=== PATIENT | male | born 1955 | race Caucasian/White ===

== ENCOUNTER → 2024-09-10 12:53 | Outpatient (REF) | payer MEDICARE, SELFPAY ==
--- NOTE | ~2024-09-10 | US_ITS ---
EXAMINATION: BILATERAL CAROTID ULTRASOUND WITH DOPPLER HISTORY: syncope COMPARISON: There are no prior studies for comparison. TECHNIQUE: Real time and Color and Spectral doppler ultrasonography of the carotid and vertebral arteries was performed in multiple planes. FINDINGS: There is mild plaque at both carotid bifurcations. VERTEBRAL FLOW DIRECTION: Antegrade bilaterally. PEAK SYSTOLIC VELOCITIES (in cm/sec): RIGHT: CCA: Prox: 107 Dist: 68.8 ICA: Prox: 66.4 Mid: 75.7 Dist: 92.7 ICA/CCA Ratio: 0.87 ECA: 146 Peak ICA EDV: 22.0 LEFT: CCA: Prox: 112 Dist: 67.5 ICA: Prox: 88.4 Mid: 81.4 Dist: 73.9 ICA/CCA Ratio: 0.80 ECA: 189 Peak ICA EDV: 27.7 US/US carotid duplex BI IMPRESSION: Findings consistent with 0-49% stenosis of the bilateral internal carotid arteries. Electronically signed by: Raffi Castellon MD 09/11/2024 08:08 AM EDT
--- NOTE | 2024-09-10 13:01 | CA_ITS ---
Transthoracic Echocardiogram Patient (Last, First, Middle): Price Lee, Gender: Male Date of : 1955 Age: 69 Procedure Date: 09/10/2024 Procedure Type: Transthoracic Echocardiogram Location: ER Height: 172.72 cm Weight: 88.45 kg BSA: 2.02 m2 Heart Rate: 101 bpm BP: 130 / 80 mmHg Superintendent Quarry: SB Referring MD: Albert Murray MD [employer] Supervisor: Storm Brunner MD Symptoms: R55 R60.9 SYNCOPE COLLAPSE EDEMA Study Quality: Fair ECG Rhythm: Tachycardia Conclusions: - 1. Normal LV ejection fraction 55-60% with impaired relaxation filling pattern 2. Moderate aortic stenosis Findings Procedure Information The quality of the study was technically difficult. The study quality is limited by patients body habitus and lung artifact. Left Ventricle Normal left ventricular size, thickness, and systolic function. The visually estimated ejection fraction is between 55-60%. Spectral Doppler is indicative of an impaired relaxation filling pattern. E/E prime ratio is >15, consistent with elevated filling pressures. Right Ventricle The right ventricle was not well visualized. Atria The left atrium is mildly dilated. 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 Interatrial shunt cannot be excluded. The right atrium was not well visualized. Aortic Valve The aortic valve was not well visualized. There is moderate calcification of the aortic valve. There is moderate aortic valve stenosis. The peak aortic gradient is 50 mmHg.The mean gradient is 31 mmHg. The aortic valve area is 1.28 cm2. There is no aortic valve regurgitation. Mitral Valve The mitral valve was not well visualized. There is trace mitral valve regurgitation. There is no mitral valve stenosis. Pulmonic Valve The pulmonic valve was not well visualized. Tricuspid Valve The tricuspid valve was not well visualized. Tricuspid regurgitation envelope is inadequate for calculation of right ventricular systolic pressure. Indeterminate right atrial pressure. Great Vessels The aorta was not well visualized. The pulmonary artery was not well visualized. Venous The inferior vena cava is normal in size. Pericardium/Pleural The pericardium was not well visualized. Prior Study Comparison No prior study available for comparison. Measurements 2D Linear Measurements IVSd: 1.04 0.6-0.9/0.6-1.0 cm LVIDd: 4.06 3.9-5.3/4.2-5.9 cm LVIDd Index: 2.01 2.4-3.2/2.2-3.1 cm/m2 LVIDs: 3.12 2.0-3.6 cm LVPWd: 0.85 0.7-1.1 cm LA Diam: 4.40 2.7-3.8/3.0-4.0 cm LAIDs Index: 2.18 1.5-2.3 cm/m2 LV Mass: 149.36 67-162/88-224 g LV Mass Index: 73.94 43-95/49-115 g/m2 LVOT Diam: 2.20 3.0+(-)1.3 cm 2D Systolic Function EF 4C: 56.10 >55% EF 2C: 60.60 >55% EF BiP: 57.60 >55% Mitral Valve MV Pk E: 0.81 MV PK A: 1.02 MV Decel Time: 154.00 E/A: 0.80 E'Lateral: 4.90 E'Medial: 4.79 E/E' Med: 16.80 E/E' Lat: 16.40 PHT: 45.00 MVA PHT: 4.89 Decel Jay: 5.24 Aortic Valve AoV Pk Jimi: 3.54 AoV Mn Jimi: 2.62 AoV VTI: 0.67 AoV Pk Grad: 50.00 Aov Mn Grad: 31.00 MARITZA Cont.VTI: 1.28 LVOT LVOT Pk Jimi: 1.23 LVOT Mn Jimi: 0.85 LVOT VTI: 0.23 LVOT Pk Grad: 6.00 LVOT Mn Grad: 4.00 LVOT Diam: 2.20 LVOT Area: 3.80 Diastolic Function MV Pk E: 0.81 MV Pk A: 1.02 E/A: 0.80 E'Medial: 4.79 E/E' Med: 16.80 E' Laterial: 4.90 E/E' Lat: 16.40 Right Ventricle TAPSE (mm): 16.30 TVS' Jimi: 17.70 Tricuspid Valve RA Press: 8.00 Great Vessels Aorta Sinus of Valsalva: 2.80 2.0-3.5 cm Ao Asc: 3.30 2.1-3.4 cm Pulmonary Veins Pulm Vein S/D 1.70 Pulmonary Valve PV Pk Jimi: 1.16 Peak PV Grad: 5.00 Updated in Other Vendor System with Status of Final Sotrm [email or web address] MD electronically signed on 09/10/2024 3:03:36 PM with status of Final
== END ==
LOC: HO.CARD 12:53
PROVIDERS: PCP Internal Medicine; Visit Provider Internal Medicine
DX: R55 Syncope and collapse (principal); R60.9 Edema, unspecified; F10.20 Alcohol dependence, uncomplicated; F17.210 Nicotine dependence, cigarettes, uncomplicated; G47.00 Insomnia, unspecified; M19.91 Primary osteoarthritis, unspecified site; N40.0 Benign prostatic hyperplasia without lower urinary tract symptoms
CPT/HCPCS: 93306; 93880

== ENCOUNTER → 2024-09-10 13:01 | Outpatient (BNV) | payer MEDICARE, SELFPAY | PROVIDERS: PCP Internal Medicine; Visit Provider Internal Medicine Cardiovascular Disease | DX: I35.0 Nonrheumatic aortic (valve) stenosis (principal) | CPT/HCPCS: 93306 ==

== ENCOUNTER → 2024-09-10 14:01 | Outpatient (BNV) | payer MEDICARE, SELFPAY | PROVIDERS: PCP Internal Medicine; Visit Provider Radiology Diagnostic Radiology | DX: R55 Syncope and collapse (principal) | CPT/HCPCS: 93880 ==

== ENCOUNTER 2025-04-15 14:42 | Outpatient (REF) | payer MEDICARE, SELFPAY ==
--- OUTSIDE RECORDS SUMMARY | 2025-04-15 18:11 | XMS_ITS | Clinical Summary ---
Author Organization [address] [facility] Building Address [address] [place] [phone] Phone Care Team Providers Care Vp Construction Name Role Phone Jessenia Perez MD Primary Care Provider [phone] Allergies No known active allergies Medications tamsulosin (FLOMAX) 0.4 mg 24 hr capsule TAKE 1 CAPSULE BY MOUTH EVERY DAY 30 MINUTES AFTER THE SAME MEAL 90 capsule 05/23/2024 Active traZODone (DESYREL) 100 mg tablet Take 2 tablets (200 mg total) by mouth. at bedtime Active hydroCHLOROthia zide (HYDRODIURIL) 25 mg tablet Take 1 tablet (25 mg total) by mouth 1 (one) time each day in the morning. 08/10/2024 Active aspirin 81 mg chewable tablet Chew 1 tablet (81 mg total) 1 (one) time each day. Active Active Problems Problem Noted Date Diagnosed Date Colon polyps 01/28/2025 Benign prostatic hyperplasia without lower urinary tract symptoms 10/29/2022 Insomnia 10/29/2022 COVID-19 08/01/2022 Encounters Date Type Department Care Team Description 04/02/2025 9:00 AM EDT Office Visit [facility] [address] [place] [phone] Digna Garcia DO Polycythemia vera (CMS/HCC V24, CMS/HCC V28) (Primary Dx) 03/18/2025 Telephone [facility] [address] [place] [phone] Digna Garcia DO 03/14/2025 11:53 AM EDT - 03/14/2025 11:59 PM EDT Hospital Encounter [facility] [address] [place] [phone] Erythrocytosis; Thrombocytosis; JEYSON-2 gene mutation Discharge Disposition: Home or Self Care 03/08/2025 Telephone Gastroenterology - [address] [phone] Gayle Moser PA 02/28/2025 11:30 AM EDT Office Visit [facility] [address] [place] [phone] Digna Garcia DO Erythrocytosis (Primary Dx); Thrombocytosis; JEYSON-2 gene mutation 02/15/2025 Telephone Gastroenterology - [address] [phone] [place] 02/04/2025 1:00 PM EDT Office Visit [facility] [address] [place] [phone] Digna Garcia DO Erythrocytosis (Primary Dx); Thrombocytosis 01/28/2025 1:00 PM EDT Office Visit Gastroenterology - [address] [place] [phone] Galye Moser PA Colon cancer screening (Primary Dx); Abnormal MRI of abdomen; Hepatomegaly; Encounter for screening for other viral diseases; Other problems related to lifestyle; Fatty (change of) liver, not elsewhere classified 01/22/2025 Telephone Gastroenterology - [address] [place] [phone] Venancio Smalls MD from Last 3 Months Immunizations Immunization Administration Dates Next Due Influenza Quadravalent, MDCK , 0.5ml, preservative free (Flucelvax) 6mo and older 03/12/2019 Influenza trivalent, 0.5mL, preservative free (Fluarix; FluLaval; Fluzone) ages 6mo and older (Afluria) 3 years and older 04/04/2020,06/10/2018,03/20/2017 Pfizer (ages 12 & older) Bivalent, COVID-19 03/22 Pneumococcal conjugate 20 va lent (Prevnar 20, PCV 20) 2mo and older 10/29/2022 Pneumococcal polysaccharide 23 valent (Pneumovax 23) 2yo and older 03/13/2021 Surgical History Surgery Date Site/Laterality Comments FOOT SURGERY Right PROCEDURE: HISTORICAL FOOT SURGERY COLONOSCOPY 11/18/2016 - 12/17/2016 TAx1 - 5 yr recall COLONOSCOPY 07/20/2012 TAx1 Medical History Medical History Date Comments Colon polyp Family History Medical History Relation Name Comments Alcohol abuse Father Liver cancer Father Stomach cancer Sister Relation Name Status Comments Father Sister Social History Tobacco Use Types Packs/Day Years Used Date Smoking Tobacco: Every Day Cigarettes Smokeless Tobacco: Never Tobacco Cessation:Ready to Q uit: Not Asked; Counseling Given: Not Answered Alcohol Use Standard Drinks/Week Comments Not Currently 0 (1 standard drink = 0.6 oz pure alcohol) previously a heavy drinker, quit late 2022/early 2023 Sex and Gender Information Value Date Recorded Sex Assigned at Male 03/12/2025 3:15 PM EDT Legal Sex Male 1:45 PM EST Gender Identity Male 03/12/2025 3:15 PM EDT Sexual Orientation Not on file Obstetrics History Last Filed Vital Signs Vital Sign Reading Time Taken Comments Blood Pressure 142/83 04/02/2025 8:57 AM EDT Pulse 93 04/02/2025 8:57 AM EDT Temperature 36.8 C (98.2 F) 04/02/2025 8:57 AM EDT Respiratory Rate 25 03/14/2025 1:34 PM EDT Oxygen Saturation 94% 04/02/2025 8:57 AM EDT Inhaled Oxygen Concentration - - Weight 86.2 kg (190 lb) 04/02/2025 8:57 AM EDT Height 172.7 cm (5' 8 ) 04/02/2025 8:57 AM EDT Body Mass Index 28.89 04/02/2025 8:57 AM EDT Plan of Treatment Upcoming Encounters Date Type Department Care Team (Late st Contact Info) Description 04/29/2025 10:00 AM EST [facility] [address] [place], [place] [phone] Jessenia Perez MD [address] [place], [place] 06/04/2025 11:30 AM EST Office Visit [facility] [address] [place] [phone] Digna Garcia DO [address] [place] [address] Health Maintenance Due Date Last Done Comments DTaP,Tdap,and Td Vaccines (1 - Tdap) 1974 Abdominal Aortic Aneurysm (AAA) Screen 05/18/2022 Falls Risk Assessment 05/18/2022 Medicare Annual Wellness Visit 05/18/2022 Social Influencers of Health Screening 05/18/2022 Depression Screening 06/20/2024 COVID-19 Vaccine ( season) 2025 03/07/2024, 04/01/2023, 04/18/2022, Additional history exists RSV Immunization Adult Patients (1 - 1-dose 75+ series) 2029 Cholesterol Screening (Lipid Panel) 10/10/2029 10/10/2024, 10/29/2022 Colorectal Cancer Screening: Colonoscopy 02/28/2035 02/28/2025 Pneumococcal Vaccine: 50+ Years Completed 10/29/2022, 03/13/2021 Zoster Vaccines Completed 01/03/2023, 11/01/2022 Hepatitis C Screening Completed 02/01/2025, 023 Influenza Vaccine Completed 02/25/2025, , 04/01/2023, Additional history exists HIB Vaccines Aged Out No longer eligi ble based on patient's age to complete this topic HPV Vaccines Aged Out No longer eligi ble based on patient's age to complete this topic Hepatitis A Vaccines Aged Out No long er eligible based on patient's age to complete this topic Hepatitis B Vaccines Aged Out No long er eligible based on patient's age to complete this topic IPV Vaccines Aged Out No longer eligi ble based on patient's age to complete this topic MMR Vaccines Aged Out No longer eligi ble based on patient's age to complete this topic Meningococcal ACWY Vaccine Aged Out N o longer eligible based on patient's age to complete this topic Meningococcal B Vaccine Aged Out No l onger eligible based on patient's age to complete this topic RSV Immunization Patients Under 20 months Aged Out No longer eligible based on patient's age to complete this topic Varicella Vaccines Aged Out No longer eligible based on patient's age to complete this topic Procedures Procedure Name Priority Date/Time Associated Diagnosis Comments IR BX AND ASP BONE MARROW Routine 03/14/2025 1:35 PM EDT Erythrocytosis Thrombocytosis JEYSON-2 gene mutation BONE MARROW EXAM Routine 03/14/2025 1:22 PM EDT Erythrocytosis Thrombocytosis JEYSON-2 gene mutation FLOW CYTOMETRY Routine 03/14/2025 1:22 PM EDT Erythrocytosis Thrombocytosis JEYSON-2 gene mutation CYTOGENETICS MISCELLANEOUS Routine 03/14/2025 1:22 PM EDT Erythrocytosis Thrombocytosis JEYSON-2 gene mutation PROTHROMBIN TIME WITH INR STAT 03/14/2025 12:22 PM EDT COMPLETE BLOOD COUNT STAT 03/14/2025 12:22 PM EDT EXTERNAL COLONOSCOPY REPORT Routine 02/28/2025 10:30 AM EDT CBC WITH AUTO DIFFERENTIAL Routine 02/04/2025 1:55 PM EDT Erythrocytosis Thrombocytosis MPL MUTATION ANALYSIS Routine 02/04/2025 1:55 PM EDT Erythrocytosis Thrombocytosis CALRETICULIN MUTATION ANALYSIS Routine 02/04/2025 1:55 PM EDT Erythrocytosis Thrombocytosis ERYTHROPOIETIN Routine 02/04/2025 1:55 PM EDT Erythrocytosis Thrombocytosis JAK2 GENE, V617F MUTATION, QUANTITATIVE, MOLECULAR STUDY Routine 02/04/2025 1:55 PM EDT Erythrocytosis Thrombocytosis CBC AND DIFFERENTIAL Routine 02/04/2025 1:55 PM EDT Erythrocytosis Thrombocytosis CBC WITH AUTO DIFFERENTIAL Routine 02/01/2025 8:49 AM EDT Abnormal MRI of abdomen HEPATIC FUNCTION PANEL Routine 8:49 AM EDT Abnormal MRI of abdomen HEPATITIS B SCREENING PANEL Routine 02/01/2025 8:49 AM EDT Abnormal MRI of abdomen Encounter for screening for other viral diseases Other problems related to lifestyle HEPATITIS C VIRUS QUANTITATIVE PCR Routine 02/01/2025 8:49 AM EDT Abnormal MRI of abdomen ANTIMITOCHONDRIAL ANTIBODY Routine 02/01/2025 8:49 AM EDT Abnormal MRI of abdomen SMOOTH MUSCLE ANTIBODY IGG Routine 02/01/2025 8:49 AM EDT Abnormal MRI of abdomen ALPHA FETOPROTEIN TUMOR MARKER Routine 02/01/2025 8:49 AM EDT Abnormal MRI of abdomen CBC AND DIFFERENTIAL Routine 02/01/2025 8:49 AM EDT Abnormal MRI of abdomen IRON AND TIBC Routine 02/01/2025 8:49 AM EDT Abnormal MRI of abdomen Fatty (change of) liver, not elsewhere classified FERRITIN Routine 02/01/2025 8:49 AM EDT Abnormal MRI of abdomen Fatty (change of) liver, not elsewhere classified VALLES FIBROSURE Routine 02/01/2025 8:49 AM EDT Abnormal MRI of abdomen LIPID PANEL WITH REFLEX TO DIRECT LDL Routine 10/10/2024 9:29 AM EDT Thrombocytosis Borderline hyperlipidemia from Last 3 Months or Most Recently Relevant to Health Maintenance Results * IR Bx and Asp Bone Marrow (03/14/2025 1:35 PM EDT) Anatomical Region Laterality Modality Interventional R adiology 03/14/2025 1:53 PM EDT Impressions 03/14/2025 1:54 PM EDT Successful bone marrow aspiration/biopsy as described. -------- FINAL REPORT -------- Dictated By: Bro Shepard Dictated Date: 03/14/2025 13:53 ET Assigned Physician: Bro Shepard Reviewed and Electronically Signed By: Bro Shepard Signed Date: 03/14/2025 13:54 ET Workstation ID: [id number] Transcribed By: Self Edit Transcribed Date: 03/14/2025 13:54 ET Narrative 03/14/2025 1:[address]-guided bone marrow biopsy. INDICATION: Pancytopenia. Interventionalist: Dr. Bro Shepard Acuity: Chronic Laterality: Right PROCEDURE: Informed consent was obtained from the patient. The patient was placed in the CT scanner in prone position. Initial image was obtained through the bony pelvis with overlying skin markers. Appropriate access site was identified. Moderate sedation: Under direct physician supervision, the patient was moderately sedated with 50 mcg FENTANYL and 1 mg VERSED IV for a total of 21 minutes. An independent interventional radiology nurse observer trained in conscious sedation provided continuous physiologic monitoring of the patient during the entirety of the procedure through recovery. Local anesthesia was provided with 2% lidocaine. After making a small stab incision with a #11 blade scalpel, an 11-gauge needle was advanced to the posterior iliac crest. Additional lidocaine was provided at the level of the periosteum. The needle was advanced through the bony cortex and a heparinized marrow sample was obtained. A core sample was then obtained. The needle was removed. Hemostasis was achieved. The patient tolerated procedure with no immediate complications. Procedure Note Bro Shepard MD - 03/14/2025 CT-guided bone marrow biopsy. INDICATION: Pancytopenia. Interventionalist: Dr. Bro Shepard Acuity: Chronic Laterality: Right PROCEDURE: Informed consent was obtained from the patient. The patient was placed inthe CT scanner in prone position. Initial image was obtained through thebony pelvis with overlying skin markers. Appropriate access site wasidentified. Moderate sedation: Under direct physician supervision, the patient wasmoderately sedated with 50 mcg FENTANYL and 1 mg VERSED IV for a total of21 minutes. An independent interventional radiology nurse observer trainedin conscious sedation provided continuous physiologic monitoring of thepatient during the entirety of the procedure through recovery. Local anesthesia was provided with 2% lidocaine. After making a smallstab incision with a #11 blade scalpel, an 11-gauge needle was advanced tothe posterior iliac crest. Additional lidocaine was provided at the levelof the periosteum. The needle was advanced through the bony cortex and a heparinized marrowsample was obtained. A core sample was then obtained. The needle wasremoved. Hemostasis was achieved. The patient tolerated procedure withno immediate complications. IMPRESSION: Successful bone marrow aspiration/biopsy as described. -------- FINAL REPORT -------- Dictated By: Bro Shepard Dictated Date: 03/14/2025 13:53 ET Assigned Physician: Bro Shepard Reviewed and Electronically Signed By: Bro Shepard Signed Date: 03/14/2025 13:54 ET Workstation ID: [id number] Transcribed By: Self Edit Transcribed Date: 03/14/2025 13:54 ET Digna Garcia DO IMG IR PROCEDURES Fin al Result * Cytogentic Miscellaneous (03/14/2025 1:22 PM EDT) Scan Result See Scanned Result 03/21/2025 5:02 PM EDT EXTERNAL LAB (NON-INTERFAC ED) Bone Marrow Specimen from bone marrow obtained by aspiration / Unknown 03/14/2025 1:22 PM EDT 03/14/2025 1:48 PM EDT us Bro Shepard MD LAB CYTOGENETICS ORDERABLES Anastasiya drake Result EXTERNAL LAB (NON-INTERFACED) * Flow cytometry (03/14/2025 1:22 PM EDT) Flow Cytometry Interpretation Bone Marrow Aspirate, Flow cytometry: Heterogeneous expression of CD56 on monocytic cells in a hemodilute sample. See comment. Comment: B cells are polytypic and T cells consist of mixed subsets. There is no increase in blasts or plasma cells. Granulocytes show a predominantly mature phenotype. Monocytic cells are not increased but show heterogeneous expression of CD56, a non-specific finding that can be seen in both reactive or neoplastic processes. Please note that myeloid disorders cannot be reliably excluded by flow cytometry. These results should be interpreted in conjunction with concurrent Bone Marrow tissue exam, [id number]. SPECIMEN: Bone marrow VIABILITY: 93.7% TOTAL CELL YIELD: 19.7x106/mL IMMUNOPHENOTYPIC FINDINGS: Lymphocytes are 19.1% of total. -T cells are 16% of total (83.4% of cells in lymphocyte gate) with no aberrant phenotype, CD4:CD8=2.2. -B cells are 1.2% of total (6.1% of cells in lymphocyte gate) and are polytypic (kappa:lambda=1.5 ). Granulocytes are 63.6% of total and show a predominantly mature phenotype without aberrancy. Monocytic cells are 11.2% of total and show heterogeneous CD56 expression. CD34+ Blasts are not increased (0.6%). Plasma cells are 0.1% with normal surface marker expression. Antibodies (27 markers): CD2, CD3, CD4, CD5, CD7, CD8, CD10, CD11b, CD13, CD14, CD15, CD16, CD19, CD20, CD33, CD34, CD38, CD45, CD56, CD64, CD117, CD123, CD200, HLA-DR, [place], Lambda, TCR??. 03/18/2025 11:22 AM EDT [facility] at 1122 EDT Disclaimer This test was developed and its performance characteristics determined by [facility]. It has not been cleared or approved by U.S. Food and Drug Administration. The FDA does not require this test to go through premarket FDA review. This test is used for clinical purposes. It should not be regarded as investigational or for research. This laboratory is certified under Clinical Laboratory Improvement Amendments of 1988 (CLIA) as qualified to perform high complexity clinical laboratory testing. 03/18/2025 11:22 AM EDT [facility] Bone Marrow Specimen from bone marrow obtained by aspiration / Unknown 03/14/2025 1:22 PM EDT 03/14/2025 3:02 PM EDT us Bro Shepard MD LAB BLOOD ORDERABLES Final Resul t [facility] [address] [place] [address], [place] [phone] * Bone marrow exam (03/14/2025 1:22 PM EDT) Addendum 3 This case was sent t [facility], [address], [place], (CLIA #[id number]) for Eosinophilia studies. Their diagnosis is as follows: No abnormalities identified. See attached scanned copy for full report. 3:16 PM EDT [facility] Addendum electronically signed by Yesika Casey MD on 04/04/2025 at 1516 EDT Addendum 2 This case was sent t [facility], [address], [place], (CLIA #[id number]) for MPN JAK2 V617F molecular studies, and a very low level of mutation was identified, which could be artifact vs. true. A NeoType Comprehensive Myeloid Panel will be added if sufficient material is available, in an attempt to somewhat quantify this result and explore the possibility of additional abnormalities. See attached scanned copy for full report 3:16 PM EDT [facility] Addendum electronically signed by Yesika Casey MD on 03/29/2025 at 1244 EDT Addendum This case was sent t [facility], [address], [place], (CLIA #[id number]) for Cytogenetic, BCR/ABL1/ASS1 Fish analysis studies. Cytogenetics shows a normal male karyotype: 46,XY[20] FISH for BCR/ABL1/ASS1 t(9;22) is NOT DETECTED See attached scanned copy for full report 3:16 PM EDT [facility] Addendum electronically signed by Yesika Casey MD on 03/25/2025 at 1643 EDT Final Diagnosis A-B. Bone Marrow, aspiration, and core biopsy: Mildly hypercellular marrow with trilineage hyperplasia, megakaryocytic clustering and pleomorphism, and mild fibrosis (MF-1). See comment. Comment: This is a mildly hypercellular marrow (approximately 50%) with trilineage hyperplasia and clustered pleomorphic megakaryocytes. Flow cytometry shows a hemodilute sample with heterogeneous expression of CD56 on monocytic cells. Reticulin staining shows mild fibrosis (MF-1). Iron staining does not demonstrate storage iron; however serum iron studies show normal levels. In the clinical setting of persistent polycythemia, leukocytosis, and thrombocytosis and positive JAK2 V617F mutation in the peripheral blood (7.6%), the overall findings are consistent with a myeloproliferative neoplasm, most likely polycythemia vera due to the increased hemoglobin and hematocrit. Before a definitive diagnosis can be made, chronic myeloid leukemia must be excluded. Karyotype, FISH for BCR/ABL1, and a reflex molecular MPN panel are pending, addendum to follow. CBC: Lab Results Component Value Date WBC 12.8 (H) 03/14/2025 RBC 5.70 (H) 03/14/2025 HGB 17.9 (H) 03/14/2025 HCT 53.7 03/14/2025 MCV 93.7 03/14/2025 MCHC 33.3 03/14/2025 RDW 15.8 (H) 03/14/2025 PLT 488 (H) 03/14/2025 MPV 9.7 03/14/2025 NRBC 0.0 03/14/2025 DIFF Lab Results Component Value Date LYMPHOPCT 16.7 02/04/2025 NEUTROABS 8.43 (H) 02/04/2025 LYMPHSABS 2.01 02/04/2025 MONOABS 1.10 (H) 02/04/2025 EOSABS 0.27 02/04/2025 BASOSABS 0.13 02/04/2025 IMMGRANABS 0.10 (H) 02/04/2025 RETIC No results found for: RETIC , RETICCTPCT Bone marrow aspirate smear (Tidwell stain): Specimen quality: Excellent, cellular and particulate Myeloid:Erythroid ratio: 2.8 Myeloid maturation: Full range of maturation without atypia Erythroid maturation: Maturing with mild atypia (irregular nuclear contours) Megakaryocyte number and morphology: Increased with hypersegmented and large nuclei Iron stain: Storage iron not identified, ring sideroblasts not identified 200 cell Differential count of aspirate: % Cell type 0.5 Blasts, 2 Promyelocytes, 20.5 Myelocytes/Metamyeloc ytes, 30 Neutrophils/Bands, 2.5 Monocytes, 9.5 Eosinophils, 0.5 Basophils, 9.5 Lymphocytes, 2 Plasma cells, 23 Erythroids. Microscopic finding of bone marrow biopsy (H and E, PAS): Specimen quality: Good (but somewhat fragmented) Cellularity: Mildly hypercellular (approximately 50%) Myeloid maturation: Hyperplastic without dysplasia Erythroid maturation: Hyperplastic without dysplasia Megakaryocyte number and maturation: Increased with clusters and pleomorphism Plasma cells: No increase or clusters Lymphocytes: No increase or aggregates Reticulin stain: Mild fibrosis (MF-1) PAS stain on core: Highlights megakaryocytes Additional Testing (Addendum to follow): Conventional karyotype FISH for BCR/ABL1 t(9;22) with a reflex molecular MPN panel. All special stains are performed with adequate controls. The technical component of this case was performed at [place], [place], while the professional component was performed at [place], [place]. 3:16 PM EDT [facility] LAB at 1704 EDT Gross Description A. Bone Marrow Aspirate, : Labeled bone marrow aspirate smears . Eleven slides are prepared. One slide subsequently is stained for iron. Two slides are stained with Tidwell's giemsa. Approximately 3 ml of bone marrow aspirate is received in a purple top tube and submitted to [facility], flow cytometry lab, [place], [place] for flow cytometric studies. Additionally, 2.5ml of bone marrow aspirate is received in a purple top tube and approximately 5ml of bone marrow aspirate is received in two green top tubes and submitted in to [facility], [place], [place], for cytogenetic studies. B. Bone Marrow Biopsy, : Labeled biopsy . Received in formalin are four montiel-red bone cores ranging from 0.2 x 0.1 cm to 1.1 x 0.2 cm and a 0.5 x 0.4 x 0.1 cm aggregate of red grumous tissue/blood clot. The specimens are wrapped in paper and submitted in toto in two cassettes, x 2. 1-bone marrow cores, four pieces, following decalcification in Immunocal 2-clot, multiple pieces TS 3:16 PM EDT [facility] Flow Cytometry Summary Heterogeneous expression of CD56 on monocytic cells in a hemodilute sample. See comment. Comment: B cells are polytypic and T cells consist of mixed subsets. There is no increase in blasts or plasma cells. Granulocytes show a predominantly mature phenotype. Monocytic cells are not increased but show heterogeneous expression of CD56, a non-specific finding that can be seen in both reactive or neoplastic processes. Please note that myeloid disorders cannot be reliably excluded by flow cytometry. These results should be interpreted in conjunction with concurrent Bone Marrow tissue exam, [id number]. 3:16 PM EDT [facility] Disclaimer Unless otherwise specified, all tissue is 10% NB formalin fixed and paraffin embedded. NOTE: The immunohistochemical tests and in situ hybridization tests were developed and their performance characteristics were determined by [facility]. They have not been cleared or approved by the U.S. Food and Drug Administration. The FDA has determined that such clearance or approval is not necessary. These tests are used for clinical purposes. They should not be regarded as investigational or for research. This laboratory is certified under the Clinical Laboratory Improvement Amendments of 1988 (CLIA) as qualified to perform high complexity clinical laboratory testing. (controls appropriate) 3:16 PM EDT [facility] Bone Marrow Specimen from bone marrow obtained by aspiration / Unknown 03/14/2025 1:22 PM EDT 03/14/2025 1:47 PM EDT Bone marrow specimen (specimen) Specimen from bone marrow obtained by biopsy / Unknown 03/14/2025 1:22 PM EDT 03/14/2025 1:47 PM EDT us Bro Shepard MD LAB PATHOLOGY ORDERABLES Edited Result - Final Performing Organization Address [facility]/ZIP Co de Phone Number [facility] [address] [place] [address], [place] [phone] * Protime-INR (03/14/2025 12:22 PM EDT) Protime 13.3 10.6 - 13.9 sec LAB COAGULATION METHOD 03/14/2025 12:54 PM EDT [facility] INR 1.1 LAB COAGULATION METHOD 03/14/2025 12:54 PM EDT [facility] Blood Venous blood specimen / Unknown Venipuncture / Unknown 03/14/2025 12:22 PM EDT 03/14/2025 12:28 PM EDT us Bro Shepard MD LAB BLOOD ORDERABLES Final Resul t Performing Organization Address [facility]/ZIP Co de Phone Number [facility] [address] [place] [address], [place] [phone] * (ABNORMAL) CBC (03/14/2025 12:22 PM EDT) WBC 12.8(H) 4.8 - 10.8 K/[facility] HEMETOLOGY METHOD 03/14/2025 12:38 PM EDT [facility] RBC 5.70(H) 4.50 - 5.50 M/[facility] HEMETOLOGY METHOD 03/14/2025 12:38 PM EDT [facility] Hemoglobin 17.9(H) 13.5 - 17.5 g/dL LAB HEMETOLOGY METHOD 03/14/2025 12:38 PM [facility] Hematocrit 53.7 42.0 - 54.0 % LAB HEMETOLOGY METHOD 03/14/2025 12:38 PM [facility] MCV 93.7 79.0 - 98.0 FL LAB HEMETOLOGY METHOD 03/14/2025 12:38 PM EDT [facility] MCH 31.2 27.0 - 32.0 pcg LAB HEMETOLOGY METHOD 03/14/2025 12:38 PM [facility] MCHC 33.3 32.0 - 37.0 g/dL LAB HEMETOLOGY METHOD 03/14/2025 12:38 PM [facility] RDW 15.8(H) 11.0 - 15.0 % LAB HEMETOLOGY METHOD 03/14/2025 12:38 PM [facility] Platelets 488(H) 130 - 400 K/mcL LAB HEMETOLOGY METHOD 03/14/2025 12:38 PM [facility] MPV 9.7 7.0 - 11.0 FL LAB HEMETOLOGY METHOD 03/14/2025 12:38 PM [facility] NRBC 0.0 <1.0 % LAB HEMETOLOGY METHOD 03/14/2025 12:38 PM [facility] NRBC Absolute 0.00 <0.10 K/mcL LAB HEMETOLOGY METHOD 03/14/2025 12:38 PM [facility] Blood Venous blood specimen / Unknown Venipuncture / Unknown 03/14/2025 12:22 PM EDT 03/14/2025 12:28 PM EDT Bro Shepard MD LAB BLOOD ORDERABLES Final Resul t [facility] ([facility]) [facility] [address] [place] [address], * External Colonoscopy Report (02/28/2025 10:30 AM EDT) Anatomical Region Laterality Modality Endoscopy Historical Provider GI~PROCEDURE ORDERABLES F inal Result * MPL mutation analysis (02/04/2025 1:55 PM EDT) Clinical Indication na 02/13 1:38 AM EDT [facility] Specimen Source: lav bld 02/14/20 1:38 AM EDT [facility] Block/Specimen ID: na 2024 1:38 AM EDT [facility] MPL Exon 10 Mutation NOT DETECTED 02/13/2025 1:38 AM EDT [facility] Comment: Reference Range: NOT DETECTED Gene TNP 02/13/2025 1:38 AM EDT [facility] Amino Acid TNP 02/13/2025 1:38 AM EDT [facility] Mutation Frequency TNP 2024 1:38 AM EDT [facility] Mutation Type TNP 02/13/2025 1:38 AM EDT [facility] Exon TNP 02/13/2025 1:38 AM EDT [facility] Nucleotide Change TNP 025 1:38 AM EDT [facility] Reference TNP 02/13/2025 1:38 AM EDT [facility] Interpretation SEE NOTE 02/13/2025 1:38 AM EDT [facility] Comment: No mutation is detected in exon 10 of MPL, encompassing codons 505 and 515. Reviewed by Pathologist: Dillon Lopez M.D. FCAP Assay Details SEE NOTE 02/13/2025 1:38 AM EDT [facility] Comment: This PCR-based advanced sequencing assay interrogates DNA from leukocytes for the presence of mutations in exon 10 of the thrombopoietin receptor (MPL), including codons 505 and 515. The sensitivity of mutation detection is 5% but may vary depending on the particular mutation type. Insertions up to 30bp and deletions up to 52bp have been successfully detected by the assay. Alterations outside of the tested areas of this gene will not be detected. Synonymous or known non-synonymous polymorphic changes (SNPs) are not reported. Mutations at these sites in MPL are associated with myeloproliferative neoplasms (MPNs), particularly essential thrombocythemia (ET) and primary myelofibrosis (PMF). Results of this assay should be correlated with morphology and other laboratory testing for final diagnosis and classification. If this test is negative, additional testing that may be useful for workup of MPNs, depending on presenting hematologic features, includes BCR-ABL1 rearrangement (test code 87109 or 35199K) or mutational analysis of JAK2 V617F (polycythemia vera (PV)/ET/PMF, 11618), CALR (ET/PMF, 39020), JAK2 exon 12 (PV, 53330) or CSF3R (chronic neutrophilic leukemia, 79817). Residual material from this sample may be used except for BCR-ABL1 testing; call lab to add. DNA was aligned to GRCh37(hg19) for analysis and transcript ID [id number] was used as reference for MPL sequence. For additional information, please refer to http://education.Askuity.SyndicateRoom/faq/YCX707 (This link is being provided for informational/educational purposes only.) This test was developed and its analytical performance characteristics have been determined by [facility]. It has not been cleared or approved by FDA. This assay has been validated pursuant to the CLIA regulations and is used for clinical purposes. Test Performed at: [facility] [address] [address] Francisco J Carrasco MD, PhD, JAMES Blood Venous blood specimen / Unknown Venipuncture / Unknown 02/04/2025 1:55 PM EDT 02/04/2025 4:46 PM EDT us Digna Garcia DO LAB MOLECULAR DIAGNOS TICS ORDERABLES Final Result [facility] [address] [place] [address] * (ABNORMAL) JAK2 gene, V617F mutation, quantitative, molecular study (02/04/2025 1:55 PM EDT) Pathologist [facility] JAK2 (V617F) Mutation DETECTED( A) Not detected 02/08/2025 12:53 PM EDT [facility] WBC Percent with V617F Mutation 7.6(H) <0.1 % 02/08/2025 12:53 PM EDT [facility] Comment: This procedure uses real-time polymerase chain reaction amplification and detection to quantify the percentage of white blood cells containing the V617F (G>T at position 617) point mutation in the autoinhibitory pseudokinase domain of the JAK2 protein. The lower limit of quantitation is 0.1% (1 in 1000 cells). A Not detected result does not preclude the presence of this or another point mutation in this gene. This test uses commercial reagents that have not been approved or cleared by the FDA. The FDA has determined that such clearance or approval is not necessary. The performance characteristics of this procedure were determined by [facility]. This test is performed pursuant to a license agreement with [employer] Test performed at [facility], [address] [place] [address] Miryam Marx MD, PhD - Supervisor [employer] Blood Venous blood specimen / Unknown Venipuncture / Unknown 02/04/2025 1:55 PM EDT 02/04/2025 4:47 PM EDT Digna Garcia DO LAB MOLECULAR DIAGNOS TICS ORDERABLES Final Result [facility] [address] [place] [address] * Calreticulin mutation analysis (02/04/2025 1:55 PM EDT) Pathologist [facility] Clinical Indication: na 01/19 1:38 AM EDT [facility] Specimen Source Blood, Venous 02/13/2025 1:38 AM EDT [facility] Block/Specimen ID: na 2024 1:38 AM EDT [facility] Calreticulin (CALR) Exon 9 Mutation Analysis NOT DETECTED 02/13/2025 1:38 AM EDT [facility] Comment: Reference Range: NOT DETECTED Gene TNP 02/13/2025 1:38 AM EDT [facility] Amino Acid TNP 02/13/2025 1:38 AM EDT [facility] Mutation Frequency TNP 2024 1:38 AM EDT [facility] Mutation Type TNP 02/13/2025 1:38 AM EDT [facility] Exon TNP 02/13/2025 1:38 AM EDT [facility] Nucleotide Change TNP 025 1:38 AM EDT [facility] Reference TNP 02/13/2025 1:38 AM EDT [facility] Interpretation SEE NOTE 02/13/2025 1:38 AM EDT [facility] Comment: No mutation is detected in exon 9 of CALR. Insertions up to 30bp and deletions up to 52bp have been successfully detected by the assay. Reviewed by Pathologist: Dillon Lopez M.D. FCAP Assay Details SEE NOTE 02/13/2025 1:38 AM EDT [facility] Comment: This PCR-based advanced sequencing assay interrogates DNA from leukocytes for the presence of mutations in exon 9 of calreticulin (CALR). The sensitivity of mutation detection is approximately 5% but may vary depending on the particular mutation type. Insertions up to 30bp and deletions up to 52bp have been successfully detected by the assay. Alterations outside of the tested areas of this gene will not be detected. Synonymous or known non-synonymous polymorphic changes (SNPs) are not reported. Frameshift mutations in this region of CALR are associated with myeloproliferative neoplasms (MPNs), particularly essential thrombocythemia (ET) and primary myelofibrosis (PMF). Results of this assay should be correlated with morphology and other laboratory testing for final diagnosis and classification. If this test is negative, additional testing that may be useful for workup of MPNs, depending on presenting hematologic features, includes BCR-ABL1 rearrangement (test code 07180 or 24932Q) or mutational analysis of JAK2 V617F (polycythemia vera (PV)/ET/PMF, 83532), JAK2 exon 12 (PV, 85690), MPL (ET/PMF, 56762) or CSF3R (chronic neutrophilic leukemia, 05992). Residual material from this sample may be used except for BCR-ABL1 testing; call lab to add. DNA was aligned to GRCh37(hg19) for analysis and transcript ID [id number] was used as reference for CALR sequence. For additional information, please refer to http://education.OrderMotion/faq/TKH881 (This link is being provided for informational/educational purposes only.) This test was developed and its analytical performance characteristics have been determined by [facility]. It has not been cleared or approved by FDA. This assay has been validated pursuant to the CLIA regulations and is used for clinical purposes. Test Performed at: [employer] [facility] [address] [address] Francisco J Carrasco MD, PhD, JAMES Blood Venous blood specimen / Unknown Venipuncture / Unknown 02/04/2025 1:55 PM EDT 02/04/2025 4:46 PM EDT Digna Garcia DO LAB MOLECULAR DIAGNOS TICS ORDERABLES Final Result [facility] [address] [place] [address] * (ABNORMAL) CBC auto differential (02/04/2025 1:55 PM EDT) Only the most recent of2 resultswithin the time period is included. WBC 12.0(H) 4.8 - 10.8 K/mcL LAB HEMETOLOGY METHOD 02/04/2025 5:22 PM EDT [facility] RBC 5.80(H) 4.50 - 5.50 M/[facility] LAB HEMETOLOGY METHOD 02/04/2025 5:22 PM EDT [facility] Hemoglobin 18.1(H) 13.5 - 17.5 g/dL LAB HEMETOLOGY METHOD 02/04/2025 5:22 PM EDT [facility] Hematocrit 55.9(H) 42.0 - 54.0 % LAB HEMETOLOGY METHOD 02/04/2025 5:22 PM EDT [facility] MCV 96.7 79.0 - 98.0 FL LAB HEMETOLOGY METHOD 02/04/2025 5:22 PM EDT [facility] MCH 31.3 27.0 - 32.0 pcg LAB HEMETOLOGY METHOD 02/04/2025 5:22 PM EDT [facility] MCHC 32.4 32.0 - 37.0 g/dL LAB HEMETOLOGY METHOD 02/04/2025 5:22 PM EDT [facility] RDW 15.2(H) 11.0 - 15.0 % LAB HEMETOLOGY METHOD 02/04/2025 5:22 PM EDT [facility] Platelets 482(H) 130 - 400 K/mcL LAB HEMETOLOGY METHOD 02/04/2025 5:22 PM EDT [facility] MPV 10.5 7.0 - 11.0 FL LAB HEMETOLOGY METHOD 02/04/2025 5:22 PM EDT [facility] NRBC 0.0 <1.0 % LAB HEMETOLOGY METHOD 02/04/2025 5:22 PM EDT [facility] NRBC Absolute 0.00 <0.10 K/mcL LAB HEMETOLOGY METHOD 02/04/2025 5:22 PM EDT [facility] Neutrophils Relative 70.1 % LAB HEMETOLOGY METHOD 02/04/2025 5:22 PM EDT [facility] Lymphocytes Relative 16.7 % LAB HEMETOLOGY METHOD 02/04/2025 5:22 PM EDT [facility] Monocytes Relative 9.1 % LAB HEMETOLOGY METHOD 02/04/2025 5:22 PM EDT [facility] Eosinophils Relative 2.2 % LAB HEMETOLOGY METHOD [facility] Basophils Relative 1.1 % LAB HEMETOLOGY METHOD 02/04/2025 5:22 PM EDT [facility] Immature Granulocytes Relative 0.8 % LAB HEMETOLOGY METHOD 02/04/2025 5:22 PM EDT [facility] Neutrophils Absolute 8.43(H) 1.50 - 7.00 K/mcL LAB HEMETOLOGY METHOD 02/04/2025 5:22 PM EDT [facility] Lymphocytes Absolute 2.01 1.00 - 5.00 K/mcL LAB HEMETOLOGY METHOD 02/04/2025 5:22 PM EDT [facility] Monocytes Absolute 1.10(H) 0.20 - 1.00 K/mcL LAB HEMETOLOGY METHOD 02/04/2025 5:22 PM EDT [facility] Eosinophils Absolute 0.27 0.00 - 0.50 K/mcL LAB HEMETOLOGY METHOD 02/04/2025 5:22 PM EDT [facility] Basophils Absolute 0.13 0.00 - 0.20 K/mcL LAB HEMETOLOGY METHOD 02/04/2025 5:22 PM EDT [facility] Immature Granulocytes Absolute 0.10(H) 0.00 - 0.03 K/mcL LAB HEMETOLOGY METHOD 02/04/2025 5:22 PM EDT [facility] Blood Venous blood specimen / Unknown Venipuncture / Unknown 02/04/2025 1:55 PM EDT 02/04/2025 4:46 PM EDT us Digna Garcia DO LAB BLOOD ORDERABLES Final Result [facility] [address] [place] [address], * Erythropoietin (02/04/2025 1:55 PM EDT) Erythropoietin 4.3 2.6 - 18.5 mIU/mL 02/07/2025 8:05 PM EDT [facility] Comment: Test performed at [facility], [address] [place] [address] Miryam Marx MD, PhD - Supervisor [employer] Blood Venous blood specimen / Unknown Venipuncture / Unknown 02/04/2025 1:55 PM EDT 02/04/2025 4:44 PM EDT Digna Garcia DO LAB BLOOD ORDERABLES Final Result Performing Organization Address [facility]/ZIP Co de Phone Number [facility] [address] [place] [address] * VALLES fibrotest liver diease (02/01/2025 8:49 AM EDT) Pathologist [facility] VALLES FibroSure See Below 02/08/2025 8:08 AM EDT [facility] Comment: VALLES FibroSure(R) Plus SEE REPORT UNDER SEPARATE COVER. REPORT WILL BE SENT TO THE ORDERING LABORATORY VIA PRINTER OR FAX. ADDITIONAL COPIES OF THE ORIGINAL REPORT MAY ALSO BE OBTAINED BY CALLING [facility] CLIENT SERVICES at [phone] Blood Venous blood specimen / Unknown Venipuncture / Unknown 02/01/2025 8:49 AM EDT 02/01/2025 9:45 AM EDT [facility] LAB BLOOD ORDERABLES Edited Res ult - Final Performing Organization Address [facility]/ZIP Co de Phone Number [facility] [address] [place] [address] * Hepatitis B screening panel (02/01/2025 8:49 AM EDT) Pathologist [facility] Hepatitis B Surface Ag Negative Negative LAB CHEMISTRY METHOD 02/01/2025 2:36 PM EDT [facility] Hep B Core Total Ab Negative Negative LAB CHEMISTRY METHOD 02/01/2025 2:36 PM EDT [facility] Hepatitis B Surface Ab Negative Negative LAB CHEMISTRY METHOD 02/01/2025 2:36 PM EDT [facility] Blood Venous blood specimen / Unknown Venipuncture / Unknown 02/01/2025 8:49 AM EDT 02/01/2025 9:45 AM EDT [facility] LAB BLOOD ORDERABLES Final Resu lt Performing Organization Address [facility]/ZIP Co de Phone Number [facility] [address] [place] [address], [place] [phone] * Hepatitis C virus quantitative molecular study (02/01/2025 8:49 AM EDT) [facility] HCV Qual Interp Not Detected Not Detected LAB MOLECULAR DIAGNOSTICS METHOD 02/01/2025 1:05 PM EDT [facility] Comment:HCV RNA not detected , unable to report quantitative results. Blood Venous blood specimen / Unknown Venipuncture / Unknown 02/01/2025 8:49 AM EDT 02/01/2025 9:45 AM EDT us Gayle [facility] LAB BLOOD ORDERABLES Final Resu lt Performing Organization Address [facility] de Phone Number [facility] [address] [place] [address], [place] [phone] * Iron and TIBC (02/01/2025 8:49 AM EDT) [facility] Iron 105 50 - 160 mcg/dL LAB CHEMISTRY METHOD 02/01/2025 11:17 AM EDT [facility] TIBC 387 250 - 450 mcg/dL LAB CHEMISTRY METHOD 02/01/2025 11:17 AM EDT [facility] Iron Saturation 27 20 - 50 % LAB CHEMISTRY METHOD 02/01/2025 11:17 AM EDT [facility] Blood Venous blood specimen / Unknown Venipuncture / Unknown 02/01/2025 8:49 AM EDT 02/01/2025 9:45 AM EDT [employer] LAB BLOOD ORDERABLES Final Resu lt Performing Organization Address City/[facility]/ZIP Co de Phone Number [facility] [address] [place] [address], [place] [phone] * Smooth muscle antibody IgG (02/01/2025 8:49 AM EDT) Pathologist [facility] Smooth Muscle (F-Actin) IgG Ab 6 <20 UNITS 02/04/2025 1:36 PM EDT [facility] Comment: Interpretation: Negative Test performed at [facility], [address], [place] [address] Miryam Marx MD, PhD - Supervisor Cell Efficiency Blood Venous blood specimen / Unknown Venipuncture / Unknown 02/01/2025 8:49 AM EDT 02/01/2025 9:46 AM EDT [employer] LAB BLOOD ORDERABLES Final Resu lt Performing Organization Address [facility] Co de Phone Number [facility] [address] [place] [address] * Alpha fetoprotein tumor marker (02/01/2025 8:49 AM EDT) [facility] AFP <2.5 0.0 - 8.0 ng/mL LAB CHEMISTRY METHOD 02/01/2025 1:06 PM EDT [facility] Blood Venous blood specimen / Unknown Venipuncture / Unknown 02/01/2025 8:49 AM EDT 02/01/2025 9:45 AM EDT Narrative [facility] - 02/01/2025 1:06 PM EDT The Siemens Advia Centaur Chemiluminescent Immunoassay is used. Results obtained with different assay methods or kits cannot be used interchangeably. Results cannot be interpreted as absolute evidence of the presence or absence of malignant disease. [employer] LAB BLOOD ORDERABLES Final Resu lt Performing Organization Address City/[facility]/ZIP Co de Phone Number [facility] [address] [place] [address], [place] [phone] * Antimitochondrial antibody (02/01/2025 8:49 AM EDT) [facility] Mitochondrial Antibody Quantitative 1.7 <=20.0 units LAB CHEMISTRY METHOD 02/06/2025 11:51 AM EDT [facility] Mitochondrial Antibody Qualitative Negative Negative LAB CHEMISTRY METHOD 02/06/2025 11:51 AM EDT [facility] Blood Venous blood specimen / Unknown Venipuncture / Unknown 02/01/2025 8:49 AM EDT 02/01/2025 9:45 AM EDT [facility] LAB BLOOD ORDERABLES Final Resu lt Performing Organization Address [facility] de Phone Number [facility] [address] [place] [address], [place] [phone] * Ferritin (02/01/2025 8:49 AM EDT) [facility] Ferritin 107 26 - 388 ng/mL LAB CHEMISTRY METHOD 02/01/2025 11:17 AM EDT [facility] Blood Venous blood specimen / Unknown Venipuncture / Unknown 02/01/2025 8:49 AM EDT 02/01/2025 9:45 AM EDT Gayle Moser PA LAB BLOOD ORDERABLES Final Resu lt Performing Organization Address [facility] Co de Phone Number [facility] [address] [place] [address], [place] [phone] * Hepatic function panel (02/01/2025 8:49 AM EDT) [facility] Total Protein 7.0 6.0 - 8.0 g/dL LAB CHEMISTRY METHOD [facility] Albumin 3.6 3.2 - 5.0 g/dL LAB CHEMISTRY METHOD 02/01/2025 11:17 AM [facility] Total Bilirubin 0.6 0.0 - 1.4 mg/dL LAB CHEMISTRY METHOD 02/01/2025 11:17 AM [facility] Bilirubin, Direct 0.2 0.0 - 0.3 mg/dL LAB CHEMISTRY METHOD 02/01/2025 11:17 AM [facility] Bilirubin, Indirect 0.4 0.0 - 1.1 mg/dL LAB CHEMISTRY METHOD 02/01/2025 11:17 AM [facility] ALT (SGPT) 41 10 - 60 unit/L LAB CHEMISTRY METHOD 02/01/2025 11:17 AM [facility] AST (SGOT) 26 10 - 42 unit/L LAB CHEMISTRY METHOD 02/01/2025 11:17 AM [facility] Alkaline Phosphatase 118 42 - 121 unit/L LAB CHEMISTRY METHOD 02/01/2025 11:17 AM [facility] Blood Venous blood specimen / Unknown Venipuncture / Unknown 02/01/2025 8:49 AM EDT 02/01/2025 9:45 AM EDT us Gayle PIPER LAB BLOOD ORDERABLES Final Resu lt [facility] [address] [place] [address], [place] [phone] * (ABNORMAL) Lipid panel with reflex to direct LDL (10/10/2024 9:29 AM EDT) Cholesterol 179 0 - 200 mg/dL LAB CHEMISTRY METHOD 10/10/2024 1:31 PM [facility] Triglycerides 91 0 - 150 mg/dL LAB CHEMISTRY METHOD 10/10/2024 1:31 PM EDT [facility] HDL 53 >=40 mg/dL LAB CHEMISTRY METHOD 10/10/2024 1:31 PM EDT [facility] LDL Calculated 108(H) 0 - 100 mg/dL LAB CHEMISTRY METHOD 10/10/2024 1:31 PM EDT [facility] VLDL Cholesterol Usman 18.2 mg/dL LAB CHEMISTRY METHOD 10/10/2024 1:31 PM EDT [facility] Non HDL Chol. (LDL+VLDL) 126 <145 mg/dL LAB CHEMISTRY METHOD 10/10/2024 1:31 PM EDT [facility] Chol/HDL Ratio 3.4 0.0 - 4.4 LAB CHEMISTRY METHOD 10/10/2024 1:31 PM EDT [facility] Blood Venous blood specimen / Unknown Venipuncture / Unknown 10/10/2024 9:29 AM EDT 10/10/2024 9:29 AM EDT us Jessenia Perez MD LAB BLOOD ORDERABLES Final Res ult [facility] [address] [place] [address], from Last 3 Months or Most Recently Relevant to Health Maintenance Insurance [facility] MEDICARE MEDICARE Care Teams Vp Construction Relationship Specialty Start Date End Date Jessenia Perez MD [address] [facility] [place] [phone] PCP - General Internal Medicine 08/29/24
== END 2025-04-15 14:43 | disposition home or self-care (01) ==
LOC: HO.BBR 14:42
PROVIDERS: PCP Internal Medicine; Visit Provider Internal Medicine
DX: D45 Polycythemia vera (principal)
CPT/HCPCS: 85014; 85018; 99195

== ENCOUNTER 2025-05-13 13:54 | Outpatient (REF) | payer MEDICARE, SELFPAY ==
--- OUTSIDE RECORDS SUMMARY | 2025-05-13 18:52 | XMS_ITS | Clinical Summary ---
Author Organization [address] [facility] Building Address [address] [place] [phone] Phone Care Team Providers Care Plywood Patcher Name Role Phone Jessenia Perez MD Primary Care Provider [phone] Allergies No known active allergies Medications tamsulosin [...] Description 04/02/2025 9:00 AM EDT Office Visit [facility] Hematology Oncology [address] [place] [phone] Digna Garcia DO Polycythemia vera (CMS/HCC V24, CMS/HCC V28) (Primary Dx) 03/18/2025 Telephone [facility] Hematology Oncology [address] [place] [phone] Digna Garcia DO 03/14/2025 11:53 AM EDT - 03/14/2025 11:59 PM EDT Hospital Encounter [facility] Interventional Radiology [address] [place] [phone] Erythrocytosis; Thrombocytosis; JEYSON-2 gene mutation Discharge Disposition: Home or Self Care 03/08/2025 Telephone Gastroenterology - [address] [phone] Gayle Moser PA 02/28/2025 11:30 AM EDT Office Visit [facility] Hematology Oncology [address] [place] [phone] Digna Garcia DO Erythrocytosis (Primary Dx); Thrombocytosis; JEYSON-2 gene mutation 02/15/2025 Telephone Gastroenterology - [address] [place] [phone] Emily Beck MA from Last 3 Months Immunizations Immunization Administration [...] Care Team (Late st Contact Info) Description 06/04/2025 11:30 AM EST Office Visit [facility] Hematology Oncology [address] [place] [phone] Digna Garcia DO [address] [place] [address] 06/05/2025 11:15 AM EST Office Visit Internal Medicine - [address] [phone] Antonio Cabrera, VIKKI [address] [place] [id number] Health Maintenance Due Date Last Done Comments [...] COLONOSCOPY REPORT Routine 02/28/2025 10:30 AM EDT HEPATITIS C VIRUS QUANTITATIVE PCR Routine 02/01/2025 [...] Signed Date: 03/14/2025 13:54 ET Workstation ID: [id number] Transcribed By: Self Edit Transcribed Date: 03/14/2025 [...] Signed Date: 03/14/2025 13:54 ET Workstation ID: [id number] Transcribed By: Self Edit Transcribed Date: 03/14/2025 13:54 ET us Dignachet Halluliffe DO IMG IR PROCEDURES Fin al Result * Cytogentic Miscellaneous (03/14/2025 1:22 PM EDT) Scan Result See Scanned Result 03/21/2025 5:02 PM EDT EXTERNAL LAB (NON-INTERFAC ED) Bone Marrow Specimen from bone marrow obtained by aspiration / Unknown 03/14/2025 1:22 PM EDT 03/14/2025 1:48 PM EDT us Bro Shepard MD LAB CYTOGENETICS ORDERABLES Anastasiya l Result EXTERNAL LAB (NON-INTERFACED) * Flow cytometry [...] conjunction with concurrent Bone Marrow tissue exam, [id number]. SPECIMEN: Bone marrow VIABILITY: 93.7% TOTAL CELL [...] CD45, CD56, CD64, CD117, CD123, CD200, HLA-DR, De Beque, Lambda, TCR??. 03/18/2025 11:22 AM EDT [facility] at 1122 EDT Disclaimer This test [...] clinical laboratory testing. 03/18/2025 11:22 AM EDT [facility] Bone Marrow Specimen from bone marrow obtained by aspiration / Unknown 03/14/2025 1:22 PM EDT 03/14/2025 3:02 PM EDT us Bro Shepard MD LAB BLOOD ORDERABLES Final Resul t [facility] [address] [place] [address], [place] [phone] * Bone marrow exam (03/14/2025 1:22 PM EDT) Addendum 4 This case was sent t o [employer], [email or web address] [place], [place], (CLIA #[id number]) for Myeloid Disorders studies. Their findings are as follows: NeoComprehensive Myeloid Disorders NGS Panel: ASXL1 T340Sph*4 (VAF 5.8%) BCORL1 R1332* (VAF 7.6%) JAK2 V617F (VAF 10.2%) See attached scanned copy for full report. 5:28 PM EDT [facility] Addendum electronically signed by Yesika Casey MD on 04/18/2025 at 1728 EDT Addendum 3 This case was sent t [employer], [address] [place], [place], (CLIA #[id number]) for Eosinophilia studies. Their diagnosis is as follows: No abnormalities identified. See attached scanned copy for full report. 5:28 PM EDT [facility] Addendum electronically signed by Yesika Casey MD on 04/04/2025 at 1516 EDT Addendum 2 This case was sent t [employer], [email or web address] [place], [place], (CLIA #[id number]) for MPN JAK2 V617F molecular studies, and a very low level of mutation was identified, which could be artifact vs. true. A NeoType Comprehensive Myeloid Panel will be added if sufficient material is available, in an attempt to somewhat quantify this result and explore the possibility of additional abnormalities. See attached scanned copy for full report 5:28 PM EDT [facility] Addendum electronically signed by Yesika Casey MD on 03/29/2025 at 1244 EDT Addendum This case was sent [employer], [email or web address] [place], [place], (CLIA #[id number]) for Cytogenetic, BCR/ABL1/ASS1 Fish analysis studies. Cytogenetics shows a normal male karyotype: 46,XY[20] FISH for BCR/ABL1/ASS1 t(9;22) is NOT DETECTED See attached scanned copy for full report 5:28 PM EDT [facility] Addendum electronically signed by Yesika Casey [...] component of this case was performed at [place], [place], while the professional component was performed at [place], [place]. 5 5:28 PM EDT [facility] LAB at 1704 EDT Gross Description A. Bone Marrow Aspirate, : Labeled bone marrow aspirate smears . Eleven slides are prepared. One slide subsequently is stained for iron. Two slides are stained with Tidwell's giemsa. Approximately 3 ml of bone marrow aspirate is received in a purple top tube and submitted to [facility], flow cytometry lab, [place], [place] for flow cytometric studies. Additionally, 2.5ml of bone marrow aspirate is received in a purple top tube and approximately 5ml of bone marrow aspirate is received in two green top tubes and submitted in to [email or web address], [place], for cytogenetic studies. B. Bone Marrow [...] decalcification in Immunocal 2-clot, multiple pieces TS 5:28 PM EDT [facility] Flow Cytometry Summary Heterogeneous expression of [...] conjunction with concurrent Bone Marrow tissue exam, [id number]. 5:28 PM EDT [facility] Disclaimer Unless otherwise specified, all tissue is 10% NB formalin fixed and paraffin embedded. NOTE: The immunohistochemical tests and in situ hybridization tests were developed and their performance characteristics were determined by [facility] Histology Laboratory. They have not been cleared [...] high complexity clinical laboratory testing. (controls appropriate) 5:28 PM EDT [facility] Bone Marrow Specimen from bone marrow obtained by aspiration / Unknown 03/14/2025 1:22 PM EDT 03/14/2025 1:47 PM EDT Bone marrow specimen (specimen) Specimen from bone marrow obtained by biopsy / Unknown 03/14/2025 1:22 PM EDT 03/14/2025 1:47 PM EDT us Bro Shepard MD LAB PATHOLOGY ORDERABLES Edited Result - Final Performing Organization Address [facility]/ZIP Co de Phone Number [facility] [address] [place] [address], [place] [phone] * Protime-INR (03/14/2025 12:22 PM EDT) Protime 13.3 10.6 - 13.9 sec LAB COAGULATION METHOD 03/14/2025 12:54 PM EDT [facility] INR 1.1 LAB COAGULATION METHOD 03/14/2025 12:54 PM EDT [facility] Blood Venous blood specimen / Unknown Venipuncture / Unknown 03/14/2025 12:22 PM EDT 03/14/2025 12:28 PM EDT us Bro Shepard MD LAB BLOOD ORDERABLES Final Resul t Performing Organization Address [facility]/ZIP Co de Phone Number [facility] [address] [place] [address], [place] [phone] * (ABNORMAL) CBC (03/14/2025 12:22 PM EDT) WBC 12.8(H) 4.8 - 10.8 K/[facility] HEMETOLOGY METHOD 03/14/2025 12:38 PM EDT [facility] RBC 5.70(H) 4.50 - 5.50 M/[facility] LAB HEMETOLOGY METHOD 03/14/2025 12:38 PM EDT [facility] Hemoglobin 17.9(H) 13.5 - 17.5 g/dL LAB HEMETOLOGY METHOD 03/14/2025 12:38 PM EDT [facility] Hematocrit 53.7 42.0 - 54.0 % LAB HEMETOLOGY METHOD 03/14/2025 12:38 PM EDT [facility] MCV 93.7 79.0 - 98.0 FL LAB HEMETOLOGY METHOD 03/14/2025 12:38 PM EDT [facility] MCH 31.2 27.0 - 32.0 pcg LAB HEMETOLOGY METHOD 03/14/2025 12:38 PM EDT [facility] MCHC 33.3 32.0 - 37.0 g/dL LAB HEMETOLOGY METHOD 03/14/2025 12:38 PM EDT [facility] RDW 15.8(H) 11.0 - 15.0 % LAB HEMETOLOGY METHOD 03/14/2025 12:38 PM EDT [facility] Platelets 488(H) 130 - 400 K/mcL LAB HEMETOLOGY METHOD 03/14/2025 12:38 PM EDT [facility] MPV 9.7 7.0 - 11.0 FL LAB HEMETOLOGY METHOD 03/14/2025 12:38 PM EDT [facility] NRBC 0.0 <1.0 % LAB HEMETOLOGY METHOD 03/14/2025 12:38 PM EDT [facility] NRBC Absolute 0.00 <0.10 K/mcL LAB HEMETOLOGY METHOD 03/14/2025 12:38 PM EDT [facility] Blood Venous blood specimen / Unknown Venipuncture / Unknown 03/14/2025 12:22 PM EDT 03/14/2025 12:28 PM EDT Bro Shepard MD LAB BLOOD ORDERABLES Final Resul t [facility] [address] [place] [address], * External Colonoscopy Report (02/28/2025 10:30 AM EDT) Anatomical Region Laterality Modality Endoscopy Historical Provider GI~PROCEDURE ORDERABLES F inal Result * Hepatitis C virus quantitative molecular study (02/01/2025 8:49 AM EDT) [facility] HCV Qual Interp Not Detected Not Detected LAB MOLECULAR DIAGNOSTICS METHOD 02/01/2025 1:05 PM EDT [facility] Comment:HCV RNA not detected , unable to report quantitative results. Blood Venous blood specimen / Unknown Venipuncture / Unknown 02/01/2025 8:49 AM EDT 02/01/2025 9:45 AM EDT us Gayle PIPER LAB BLOOD ORDERABLES Final Resu lt [facility] [address] [place] [address], [place] [phone] * (ABNORMAL) Lipid panel with reflex to direct LDL (10/10/2024 9:29 AM EDT) [facility] Cholesterol 179 0 - 200 mg/dL LAB CHEMISTRY METHOD 10/10/2024 1:31 PM EDT [facility] Triglycerides 91 0 - 150 mg/dL LAB CHEMISTRY METHOD 10/10/2024 1:31 PM [facility] HDL 53 >=40 mg/dL LAB CHEMISTRY METHOD 10/10/2024 1:31 PM [facility] LDL Calculated 108(H) 0 - 100 mg/dL LAB CHEMISTRY METHOD 10/10/2024 1:31 PM EDT [facility] VLDL Cholesterol Usman 18.2 mg/dL LAB CHEMISTRY METHOD 10/10/2024 1:31 PM EDT [facility] Non HDL Chol. (LDL+VLDL) 126 <145 mg/dL LAB CHEMISTRY METHOD 10/10/2024 1:31 PM EDT [facility] Chol/HDL Ratio 3.4 0.0 - 4.4 LAB CHEMISTRY METHOD 10/10/2024 1:31 PM EDT [facility] Blood Venous blood specimen / Unknown Venipuncture / Unknown 10/10/2024 9:29 AM EDT 10/10/2024 9:29 AM EDT Jessenia Perez MD LAB BLOOD ORDERABLES Final Res [facility] [address] [place] [address], from Last 3 Months or Most Recently Relevant to Health Maintenance Insurance [facility] MEDICARE MEDICARE Care Teams Plywood Patcher Relationship Specialty Start Date End Date Jessenia Perez MD [address] [place] [phone] PCP - General Internal Medicine 08/29/24
== END 2025-05-13 13:55 | disposition home or self-care (01) ==
LOC: HO.BBR 13:54
PROVIDERS: PCP Internal Medicine; Visit Provider Internal Medicine
DX: D45 Polycythemia vera (principal)
CPT/HCPCS: 85018; 99195